=== PATIENT | female | born 1950 | race Caucasian/White ===

== ENCOUNTER 2019-03-16 15:49 | Emergency (ER) | payer MEDICARE, BC ==
[2019-03-16 16:16] VITALS: BP 146/79; PULSE 75; RESP 16; TEMP 98.6
[2019-03-16] MEDS ORDERED: ONDANSETRON 4 MG/2 ML VIAL IVP STA (17:19)
[2019-03-16] MEDS ORDERED: PANTOPRAZOLE 40 MG/10 ML VIAL IVP STA (17:19)
[2019-03-16] MEDS ORDERED: SODIUM CHLORIDE 0.9% 1,000 ML IV STA (17:19)
--- NOTE | 2019-03-16 17:37 | ED ---
Abdominal Pain HPI - General Source: patient, RN notes reviewed, old records reviewed Mode of arrival: wheelchair Limitations: no limitations <Zeynep Graves - Last Filed: 03/17/19 06:26> <Kylah Addison - Last Filed: 03/19/19 01:07> - General Chief Complaint: Abdominal Pain Stated Complaint: abdominal pain Time Seen by Provider: 03/16/19 16:56 - History of Present Illness Initial Comments: This is a 68-year-old female presents raise her arms today for [employer] of episode of right upper quadrant abdominal pain. Patient reports that symptoms started 30 minutes after drinking a large glass of cold water. She reports a sharp stabbing in nature but now subsided subsided. She states that it did have some radiation under her diaphragm towards her back. Patient states she's had a history of appendectomy. No other complain, including nausea or vomiting, fevers or chills, changes in urination or bowel habits. (Zeynep Graves) - Related Data Home Medications Medication Instructions Recorded Confirmed Cholecalciferol [Vitamin D3 (25 1,000 unit PO DAILY 03/16/19 03/16/19 Mcg = 1000 Iu)] Cyanocobalamin (Vitamin B-12) 1,000 mcg PO DAILY 03/16/19 03/16/19 [Vitamin B-12] Magnesium 200 mg PO DAILY 03/16/19 03/16/19 Allergies Allergy/AdvReac Type Severity Reaction Status Date / Time codeine Allergy Nausea & Verified 03/16/19 18:12 Vomiting Review of Systems ROS Other: All systems not noted in ROS Statement are negative. <Zeynep Graves - Last Filed: 03/17/19 06:26> ROS Other: All systems not noted in ROS Statement are negative. <Kylah Addison - Last Filed: 03/19/19 01:07> ROS Statement: Those systems with pertinent positive or pertinent negative responses have been documented in the HPI. Past Medical History Past Medical History: No Reported History History of Any Multi-Drug Resistant Organisms: None Reported Past Surgical History: Appendectomy, Tubal Ligation Past Psychological History: No Psychological Hx Reported Smoking Status: Never smoker Past Alcohol Use History: Occasional Past Drug Use History: None Reported <Zeynep Graves - Last Filed: 03/17/19 06:26> General Exam Limitations: no limitations General appearance: alert, in no apparent distress Head exam: Present: atraumatic, normocephalic, normal inspection Eye exam: Present: normal appearance, PERRL, EOMI. Absent: scleral icterus, conjunctival injection, periorbital swelling ENT exam: Present: normal exam, mucous membranes moist Neck exam: Present: normal inspection. Absent: tenderness, meningismus, lymphadenopathy Respiratory exam: Present: normal lung sounds bilaterally. Absent: respiratory distress, wheezes, rales, rhonchi, stridor Cardiovascular Exam: Present: regular rate, normal rhythm, normal heart sounds. Absent: systolic murmur, diastolic murmur, rubs, gallop, clicks GI/Abdominal exam: Present: soft, tenderness (minimal RUQ tenderness), normal bowel sounds. Absent: distended, guarding, rebound, rigid Extremities exam: Present: normal inspection, full ROM, normal capillary refill. Absent: tenderness, pedal edema, joint swelling, calf tenderness Back exam: Present: normal inspection Neurological exam: Present: alert <Zeynep Graves - Last Filed: 03/17/19 06:26> - General Exam Comments Initial Comments: 68-year-old female. Alert and oriented. No distress. Resting comfortably bed. (Zeynep Graves) Course Vital Signs 03/16/19 16:13 Temperature 98.6 F Pulse Rate 75 Respiratory 16 Rate Blood Pressure 146/79 O2 Sat by Pulse 99 Oximetry Medical Decision Making - Lab Data Result diagrams: 03/16/19 17:45 03/16/19 17:45 - Radiology Data Radiology results: report reviewed <Zeynep Graves - Last Filed: 03/17/19 06:26> - Lab Data Result diagrams: 03/16/19 17:45 03/16/19 17:45 <Kylah Addison - Last Filed: 03/19/19 01:07> - Medical Decision Making 5-year-old female presents today acutely sharp stabbing right upper quadrant abdominal pain, symptoms started after "vessel [place]. Discussed with the description of her symptoms with concerns for pericolic. She had an IV and blood work obtained and urine sample completed. Patient's lab work and urine are negative for any acute changes. She pain we did do an right upper quadrant. MULTIPLE LIVER CYSTS WERE NOTED. DISCUSSED THE PATIENT COULD STILL BE SUFFERING FROM BILIARY COLIC. DISCUSSED SHE MAY BENEFIT FROM HIDA SCAN IF THE PAIN RECURS OR to RETURN FOR REEVALUATION. PATIENT IS AGREEABLE TO TREATMENT PLAN WILL COMPLY. RETURN PARAMETERS WERE DISCUSSED. ON REEVALUATION AGAIN SHE IS RESTING That Denied Any Pain. (eZynep Graves) I was available for consultation in the emergency department. The history and physical exam were done by the midlevel provider. I was consulted for this patients care. I reviewed the case with the midlevel provider and based on their presentation of the patient, I agree with the assessment, medical decision making and plan of care as documented. Chart was dictated using [employer] dictation software. Attempts were made to correct any dictation errors however some typographical errors may persist. (Kylah Addison) - Lab Data Lab Results 03/16/19 03/16/19 03/16/19 Range/Units 17:45 17:45 17:45 WBC 5.9 (3.8-10.6) k/uL RBC 4.04 (3.80-5.40) m/uL Hgb 12.5 (11.4-16.0) gm/dL Hct 37.2 (34.0-46.0) % MCV 92.0 (80.0-100.0) fL MCH 31.0 (25.0-35.0) pg MCHC 33.7 (31.0-37.0) g/dL RDW 12.7 (11.5-15.5) % Plt Count 265 (150-450) k/uL Neutrophils % 57 % Lymphocytes % 35 % Monocytes % 5 % Eosinophils % 1 % Basophils % 0 % Neutrophils # 3.3 (1.3-7.7) k/uL Lymphocytes # 2.0 (1.0-4.8) k/uL Monocytes # 0.3 (0-1.0) k/uL Eosinophils # 0.1 (0-0.7) k/uL Basophils # 0.0 (0-0.2) k/uL PT 10.2 (9.0-12.0) sec INR 0.9 (<1.2) APTT 25.2 (22.0-30.0) sec Sodium 137 (137-145) mmol/L Potassium 4.0 (3.5-5.1) mmol/L Chloride 104 (98-107) mmol/L Carbon Dioxide 25 (22-30) mmol/L Anion Gap 8 mmol/L BUN 12 (7-17) mg/dL Creatinine 0.64 (0.52-1.04) mg/dL Est GFR (CKD-EPI)AfAm >90 (>60 ml/min/1.73 sqM) Est GFR (CKD-EPI)NonAf >90 (>60 ml/min/1.73 sqM) Glucose 97 (74-99) mg/dL Calcium 9.6 (8.4-10.2) mg/dL Total Bilirubin 0.2 (0.2-1.3) mg/dL AST 22 (14-36) U/L ALT 21 (9-52) U/L Alkaline Phosphatase 68 (38-126) U/L Total Protein 6.9 (6.3-8.2) g/dL Albumin 4.3 (3.5-5.0) g/dL Amylase 53 (30-110) U/L Lipase 98 (23-300) U/L Urine Color Urine Appearance (Clear) Urine pH (5.0-8.0) Ur Specific [place] (1.001-1.035) Urine Protein (Negative) Urine Glucose (UA) (Negative) Urine Ketones (Negative) Urine Blood (Negative) Urine Nitrite (Negative) Urine Bilirubin (Negative) Urine Urobilinogen (<2.0) mg/dL Ur Leukocyte Esterase (Negative) Urine RBC (0-5) /hpf Urine WBC (0-5) /hpf Urine Bacteria (None) /hpf Urine Mucus (None) /hpf 03/16/19 Range/Units 17:45 WBC (3.8-10.6) k/uL RBC (3.80-5.40) m/uL Hgb (11.4-16.0) gm/dL Hct (34.0-46.0) % MCV (80.0-100.0) fL MCH (25.0-35.0) pg MCHC (31.0-37.0) g/dL RDW (11.5-15.5) % Plt Count (150-450) k/uL Neutrophils % % Lymphocytes % % Monocytes % % Eosinophils % % Basophils % % Neutrophils # (1.3-7.7) k/uL Lymphocytes # (1.0-4.8) k/uL Monocytes # (0-1.0) k/uL Eosinophils # (0-0.7) k/uL Basophils # (0-0.2) k/uL PT (9.0-12.0) sec INR (<1.2) APTT (22.0-30.0) sec Sodium (137-145) mmol/L Potassium (3.5-5.1) mmol/L Chloride (98-107) mmol/L Carbon Dioxide (22-30) mmol/L Anion Gap mmol/L BUN (7-17) mg/dL Creatinine (0.52-1.04) mg/dL Est GFR (CKD-EPI)AfAm (>60 ml/min/1.73 sqM) Est GFR (CKD-EPI)NonAf (>60 ml/min/1.73 sqM) Glucose (74-99) mg/dL Calcium (8.4-10.2) mg/dL Total Bilirubin (0.2-1.3) mg/dL AST (14-36) U/L ALT (9-52) U/L Alkaline Phosphatase (38-126) U/L Total Protein (6.3-8.2) g/dL Albumin (3.5-5.0) g/dL Amylase (30-110) U/L Lipase (23-300) U/L Urine Color Light Yellow Urine Appearance Clear (Clear) Urine pH 6.5 (5.0-8.0) Ur Specific [place] 1.014 (1.001-1.035) Urine Protein Negative (Negative) Urine Glucose (UA) Negative (Negative) Urine Ketones 1+ H (Negative) Urine Blood Negative (Negative) Urine Nitrite Negative (Negative) Urine Bilirubin Negative (Negative) Urine Urobilinogen <2.0 (<2.0) mg/dL Ur Leukocyte Esterase Trace H (Negative) Urine RBC 1 (0-5) /hpf Urine WBC 3 (0-5) /hpf Urine Bacteria Rare H (None) /hpf Urine Mucus Rare H (None) /hpf - Radiology Data Ultrasound of the gallbladder shows multiple hepatic cysts. No gallstones are or dilated dust. Free fluid. Normal right kidney. (Zeynep Graves) Disposition Is patient prescribed a controlled substance at d/c from ED?: No Time of Disposition: 19:06 <Zeynep Graves - Last Filed: 03/17/19 06:26> <Kylah Addison A - Last Filed: 03/19/19 01:07> Clinical Impression: Right upper quadrant abdominal pain, Liver cyst Disposition: HOME SELF-CARE Condition: Good Instructions (If sedation given, give patient instructions): Abdominal Pain (ED) Additional Instructions: Please follow up with family doctor if symptoms have not improved over the next two days. Please return to the emergency room if your symptoms increase or worsen or for any other concerns. Referrals: None,Stated [Primary Care Provider] - 1-2 days Merari Boyle MD [STAFF PHYSICIAN] - 1-2 days Geoff Carty MD [STAFF PHYSICIAN] - 1-2 days
[2019-03-16 17:57] LABS: Basophils % (A) 0 %; Eosinophils # (A) 0.1 k/uL (0-0.7); Eosinophils % (A) 1 %; HCT 37.2 % (34.0-46.0); HGB 12.5 gm/dL (11.4-16.0); Lymphocytes % (A) 35 %; MCHC 33.7 g/dL (31.0-37.0); Mean Platelet Volume 5.8; Monocytes # (A) 0.3 k/uL (0-1.0); Monocytes % (A) 5 %; Neutrophils # (A) 3.3 k/uL (1.3-7.7); Neutrophils % (A) 57 %; Platelet Count 265 k/uL (150-450); RBC 4.04 m/uL (3.80-5.40); RDW 12.7 % (11.5-15.5); WBC 5.9 k/uL (3.8-10.6)
[2019-03-16 18:07] LABS: ALT 21 U/L (9-52); AST 22 U/L (14-36); African American GFR (CKD) >90 (>60 ml/min/1.73 sqM); Albumin 4.3 g/dL (3.5-5.0); Alkaline Phosphatase 68 U/L (38-126); Amylase 53 U/L (30-110); Anion Gap 8 mmol/L; Appearance,Urine Clear (Clear); Bacteria,Urine Rare /hpf; Bilirubin,Urine Negative (Negative); Blood Urea Nitrogen 12 mg/dL (7-17); Blood,Urine Negative (Negative); Calcium 9.6 mg/dL (8.4-10.2); Carbon Dioxide 25 mmol/L (22-30); Chloride 104 mmol/L (98-107); Color,Urine Light Yellow; Glucose 97 mg/dL (74-99); Glucose,Urine (UA) Negative (Negative); Ketones,Urine 1+ (Negative); Leukocyte Esterase,Urine Trace (Negative); Mucus,Urine Rare /hpf; Nitrite,Urine Negative (Negative); PH, Urine 6.5 (5.0-8.0); Protein,Urine Negative (Negative); RBC,Urine 1 /hpf (0-5); Sodium 137 mmol/L (137-145); Specific Gravity,Urine 1.014 (1.001-1.035); Total Bilirubin 0.2 mg/dL (0.2-1.3); Total Protein 6.9 g/dL (6.3-8.2); Urobilinogen,Urine <2.0 mg/dL (<2.0); WBC,Urine 3 /hpf (0-5)
[2019-03-16 18:09] LABS: INR 0.9 (<1.2); Partial Thromboplastin Time 25.2 sec (22.0-30.0); Prothrombin Time 10.2 sec (9.0-12.0)
--- NOTE | 2019-03-16 18:50 | US ---
EXAMINATION TYPE: US gallbladder DATE OF EXAM: 03/16/2019 COMPARISON: NONE CLINICAL HISTORY: ruq pain. RUQ pain x 4 hours. Hx appendectomy. EXAM MEASUREMENTS: Liver Length: 18.9 cm Gallbladder Wall: 0.22 cm CBD: 0.41 cm Right Kidney: 10.6 x 5.6 x 4.1 cm Pancreas: appears to be wnl Liver: Appears heterogeneous. Multiple anechoic areas and septated anechoic areas with hypoechoic co mponents seen within the liver. Largest in right lobe measures: 4.5 x 5.3 x 4.2 cm. Largest in left l obe measures: 2.7 x 2.3 x 2.2 cm. Gallbladder: Measures 8.6 cm in length. Appears to be wnl. Evidence for sonographic Ruiz's sign: no CBD: appears to be wnl Right Kidney: No hydronephrosis or masses seen IMPRESSION: There are multiple hepatic cysts. No gallstones or dilated ducts. No free fluid. Normal r ight kidney.
== END 2019-03-16 19:30 | disposition home or self-care (01) ==
LOC: EC 15:49
DX: K76.89 Other specified diseases of liver (principal); R10.11 Right upper quadrant pain; M54.9 Dorsalgia, unspecified; Z88.5 Allergy status to narcotic agent; Z90.49 Acquired absence of other specified parts of digestive tract
CPT/HCPCS: 36415; 80053; 82150; 83690; 85025; 85610; 85730; 81001; 76705; 99284; 96374; 96375; 96361; J2405; C9113

== ENCOUNTER → 2020-12-14 | Outpatient (CLI) | payer MEDICARE, BC ==
[2020-12-14 17:33] LABS: Chol/HDL Ratio 2.45; LDL Cholesterol,Calculated 91.2 mg/dL (0.0-131.0); VLDL Calculation 17.8 mg/dL (5.00-40.00)
== END | disposition home or self-care (01) ==
LOC: LABWHC1 08:35
DX: E78.00 Pure hypercholesterolemia, unspecified (principal)
CPT/HCPCS: 36415; 80061; 82550; 84450; 84460